=== PATIENT | female | born 2000 | race Caucasian/White ===

== ENCOUNTER 2024-03-22 16:50 | Emergency (ER) | payer BC ==
[2024-03-22 16:59] VITALS: BP 106/69; PULSE 67; RESP 20; TEMP 97.9; BMI 22.8
== END 2024-03-22 18:47 | disposition home or self-care (01) ==
LOC: JERFT 16:50
DX: Z32.02 Encounter for pregnancy test, result negative (principal)
CPT/HCPCS: 36415; 84702; 84703; 99283-25